=== PATIENT | female | born 1975 | race American Indian/Alaskan Native ===

== ENCOUNTER 2017-03-29 09:45 | Outpatient (CLI) | payer OTHER ==
--- NOTE | 2017-03-29 10:57 | Mammography Report ---
BILATERAL MAMMOGRAM: FINDINGS: There are scattered fibroglandular densities (approximately 25%-50% glandular). No mass, distortion, suspicious calcification, or skin change is seen. There is no significant change when compared to prior examination in October 2014. CAD was utilized. IMPRESSION: Negative mammogram. There is no mammographic evidence of malignancy. RECOMMENDATION: Follow-up per ACS guidelines. BI-RADS CATEGORY: 1 = Negative ACR BI-RADS MAMMOGRAPHIC CODES: 0 = Needs additional imaging evaluation; 1 = Negative; 2 = Benign; 3 = Probably benign; 4 = Suspicious; 5 = Malignant; 6 = Known biopsy-proven malignancy COMMENT: 1. Dense breast tissue, i.e., adenosis, fibrocystic changes, etc., may obscure an underlying neoplasm. 2. Approximately 10% of cancers are not detected with mammography. 3. A negative mammography report should not delay biopsy if a clinically suspicious mass is present. COMMENT: Patient follow-up letters are generated in [employer].
== END 2017-03-29 09:46 | disposition home or self-care (01) ==
LOC: SPVWC 09:45
PROVIDERS: ATTEND Obstetrics & Gynecology
DX: Z12.31 Encounter for screening mammogram for malignant neoplasm of breast (principal)
CPT/HCPCS: 77067; G0202

== ENCOUNTER 2019-02-13 08:08 | Outpatient (CLI) | payer BC ==
--- NOTE | 2019-02-13 09:34 | Ultrasound Report ---
ABDOMINAL ULTRASOUND HISTORY: Bloating, problems suggesting food and reflux. COMPARISON: None. TECHNIQUE: Multiple real-time ultrasonographic grayscale images were obtained of the abdomen. FINDINGS: Aorta: No significant abnormality. The aorta measures 2.2 cm maximum. IVC: No significant abnormality. Pancreas: The tail is partially obscured by poor acoustic windows. Visualized portions without signi ficant abnormality. Liver: Normal. The right lobe measures 13.8 cm. Gallbladder: No stones, wall thickening or pericholecystic fluid. Negative Mancini sign. Common bile duct: 3.7 mm. Right kidney: Anterior cortical scarring but otherwise normal. No hydronephrosis. Kidney measures 11 .3 x 4.4 x 5.4 cm. Spleen: Normal size and appearance measuring 11.2 x 5.0 x 4.8 cm in length. Left kidney: No significant abnormality. No hydronephrosis. Kidney measures cm. Additional findings: None. IMPRESSION: Negative abdomen. No cholelithiasis and no signs of acute cholecystitis. Signer Name: Moi Barrios MD Signed: 02/13/2019 9:30 AM Workstation Name: [id number]
== END 2019-02-13 08:09 | disposition home or self-care (01) ==
LOC: SPVWC 08:08
PROVIDERS: ATTEND Internal Medicine Gastroenterology
DX: R13.12 Dysphagia, oropharyngeal phase (principal); R10.13 Epigastric pain
CPT/HCPCS: 76700

== ENCOUNTER 2020-04-21 11:24 | Emergency (ER) | payer BC ==
[2020-04-21 11:38] VITALS: BP 145/80
--- NOTE | 2020-04-21 13:03 | Event Note ---
ED Screening Note ED Screening Note: Patient is a 44-year-old female presents emergency room complaints of urinary frequency that began 2 weeks ago. She has associated left lower back pain and left flank pain. She states that she saw her primary care doctor 2 days ago and had her urine tested which was negative for UTI. She states that they started her on Macrobid and sent a urine culture. She states that she is also had associated nausea and a couple episodes of vomiting. She is able to tolerate p.o. intake. She denies any dysuria, fever, diarrhea, abdominal pain. No past medical history. Allergy to penicillin. She states that she had a hysterectomy 4 to 5 years ago. She states that she is concerned she may have a nephrolith iasis. This initial assessment/diagnostic orders/clinical plan/treatment(s) is/are subject to change based on patients health status, clinical progression and re- assessment by fellow clinical providers in the ED. Further treatment and workup at subsequent clinical providers discretion. Patient/guardian urged not to elope from the ED as their condition may be serious if not clinically assessed and managed. Initial orders include: Labs, urine, CT
[2020-04-21 13:57] LABS: Basophils % (Auto) 0.3 % (0.0-1.8); Eosinophils # (Auto) 0.1 K/mm3 (0.0-0.4); Eosinophils % (Auto) 0.8 % (0.0-4.3); Hematocrit 41.2 % (30.3-42.9); Hemoglobin 13.5 gm/dl (10.1-14.3); Lymphocytes # (Auto) 1.7 K/mm3 (1.2-5.4); Mean Corpuscular HGB Conc 33 % (30-34); Mean Corpuscular Volume 87 fl (79-97); Monocytes # (Auto) 0.7 K/mm3 (0.0-0.8); Monocytes % (Auto) 8.3 % (0.0-7.3); Red Blood Count 4.74 M/mm3 (3.65-5.03); Red Cell Distribution Width 13.8 % (13.2-15.2)
[2020-04-21 14:04] LABS: Alanine Aminotransferase 9 units/L (7-56); Albumin 4.1 g/dL (3.9-5); BUN/Creatinine Ratio 15; Blood Urea Nitrogen 15 mg/dL (7-17); Calcium 9.9 mg/dL (8.4-10.2); Hemolysis Index 3
--- NOTE | 2020-04-21 14:32 | Cat Scan Report ---
CT ABDOMEN AND PELVIS WITHOUT CONTRAST INDICATION: Left flank pain. TECHNIQUE: Axial CT images were obtained through the abdomen and pelvis without IV contrast. All CT scans at is location are performed using CT dose reduction for ALARA by means of automated exposure control. COMPARISON: None available. FINDINGS: LOWER CHEST: 1.5 cm left lower lobe nodular parenchymal density and 6 mm right lower lobe pulmonary n odule image 30 LIVER: No significant abnormality. GALLBLADDER: No significant abnormality. BILE DUCTS: No significant abnormality. PANCREAS: No significant abnormality. SPLEEN: No significant abnormality. ADRENALS: No significant abnormality. RIGHT KIDNEY and URETER: No significant abnormality. LEFT KIDNEY and URETER: Obstructing 4 mm left UVJ stone image 157 with mild left hydronephrosis STOMACH and SMALL BOWEL: No significant abnormality. COLON: No significant abnormality. APPENDIX: No significant abnormality. PERITONEUM: No free fluid. No free air. No fluid collection. LYMPH NODES: No significant adenopathy. AORTA and ARTERIES: No significant abnormality. IVC and VEINS: No significant abnormality. 1.5 cm URINARY BLADDER: No significant abnormality. REPRODUCTIVE ORGANS: Hemorrhagic 3.5 cm left ovarian cyst image 139 ADDITIONAL FINDINGS: 2.3 cm left intramuscular psoas lipoma SKELETAL SYSTEM: No significant abnormality. IMPRESSION: 1. Obstructing 4 mm left UVJ stone with mild left hydronephrosis 2. Bilateral lower lobe nodularity likely infectious/inflammatory in etiology. Largest nodular densit y measures 1.5 cm. INCIDENTAL PULMONARY NODULE RECOMMENDATION RECOMMENDATION: Solid Nodule size >8 mm -- Multiple - Low Risk Patient: CT at 3-6 months, then consider CT at 18-24 months - High Risk Patient: CT at 3-6 months, then CT at 18-24 months Note These recommendations do not apply to lung cancer screening, patients with immunosuppression, o r patients with known primary cancer. Note Newly detected indeterminate nodule in persons 35 years of age or older. Persons under the age of 35 should not receive follow-up unless there is a known primary cancer. Note A Perifissural Nodule is a fissure-attached/subpleural, homogeneous, solid nodule that had smoo th margins and an oval, lentiform, or triangular shape. They represent about 20% of nodules detected in lung cancer screening, are invariably benign, and do not require follow-up. Nodules 10 mm or large r (or those with suspicious features) will continue to be managed based on the size criteria. Low Risk Patient -- minimal or absent history of smoking and of other known risk factors. High Risk Patient -- history of smoking or of other known risk factors. Nodule dimensions are average of long and short axes, rounded to the nearest millimeter. Based on 2017 Fleischner Society Guidelines found in Radiology 2017 284:228-243. https://doi.org/10.1148/radiol.6064695790 https://www.ncbi.nlm.nih.gov/pmc/articles/ROG4179452/ Signer Name: Too Benavides MD Signed: 04/21/2020 2:28 PM Workstation Name: [id number]
[2020-04-21 14:56] LABS: Platelet Count 196 K/mm3 (140-440)
[2020-04-21] MEDS ORDERED: SODIUM CHLORIDE 0.9% 1000 ML 1,000 ML IV ONE (16:26)
[2020-04-21] MEDS ORDERED: TAMSULOSIN 0.4 MG CAP PO ONE (16:26)
[2020-04-21] MEDS ORDERED: traMADol 50 MG TAB PO ONE (16:26)
[2020-04-21] MEDS ORDERED: MORPHINE 2 MG/1 ML INJ IV ONE (16:33)
[2020-04-21] MEDS ORDERED: ONDANSETRON 4 MG/2 ML INJ IV ONE (16:33)
--- NOTE | 2020-04-21 16:34 | Emergency Department Report ---
ED Female HPI - General Chief complaint: Urogenital-Female Stated complaint: FREQUENT URINATION/PRESSURE Time Seen by Provider: 04/21/20 13:01 Source: patient Mode of arrival: Ambulatory Limitations: No Limitations - History of Present Illness Initial comments: Patient is a 44-year-old female presents emergency room complaints of urinary frequency that began 2 weeks ago. She has associated left lower back pain and left flank pain. She states that she saw her primary care doctor 2 days ago and had her urine tested which was negative for UTI. She states that they started her on Macrobid and sent a urine culture. She states that she is also had associated nausea and a couple episodes of vomiting. She is able to tolerate p.o. intake. She denies any dysuria, fever, diarrhea, abdominal pain. No past medical history. Allergy to penicillin. She states that she had a hysterectomy 4 to 5 years ago. She states that she is concerned she may have a nephrolithiasis. Onset/Timin -: days(s) Severity scale (0 -10): 9 Quality: sharp, stabbing Consistency: intermittent Improves with: none Are you Now?: No Associated Symptoms: nausea/vomiting, hematuria, other (Frequent urination) - Related Data Home Medications Medication Instructions Recorded Confirmed Last Taken Iron [Iron 18 MG TAB] 2 tab PO QDAY 12/18/14 12/25/14 12/23/14 09:00 raNITIdine HCl [Zantac 150 MG TAB] 150 mg PO PRN PRN 12/18/14 12/25/14 12/23/14 09:00 Previous Rx's Medication Instructions Recorded Last Taken Type HYDROcodone/APAP 7.5-325 [Micanopy 1 each PO Q6HR PRN #12 tablet 04/21/20 Unknown Rx 7.5/325] Ketorolac [Toradol] 10 mg PO Q6H PRN #20 tablet 04/21/20 Unknown Rx Ondansetron [Zofran Odt] 4 mg PO Q8HR #12 tab.rapdis 04/21/20 Unknown Rx Tamsulosin [Flomax] 0.4 mg PO QDAY #5 cap 04/21/20 Unknown Rx Allergies Allergy/AdvReac Type Severity Reaction Status Date / Time Penicillins Allergy Hives Verified 12/25/14 13:03 ED Review of Systems ROS: Stated complaint: FREQUENT URINATION/PRESSURE Other details as noted in HPI Comment: All other systems reviewed and negative ED Past Medical Hx - Past Medical History Previous Medical History?: Yes Hx Hypertension: No Hx GERD: Yes (occas) Hx Headaches / Migraines: Yes (occas migraines) Hx Asthma: No - Surgical History Past Surgical History?: Yes Additional Surgical History: Hyst - Social History Smoking Status: Never Smoker Substance Use Type: None - Medications Home Medications: Home Medications Medication Instructions Recorded Confirmed Last Taken Type Iron [Iron 18 MG TAB] 2 tab PO QDAY 12/18/14 12/25/14 12/23/14 09:00 History raNITIdine HCl [Zantac 150 MG TAB] 150 mg PO PRN PRN 12/18/14 12/25/14 12/23/14 09:00 History HYDROcodone/APAP 7.5-325 [M[place]opy 1 each PO Q6HR PRN #12 tablet 04/21/20 Unknown Rx 7.5/325] Ketorolac [Toradol] 10 mg PO Q6H PRN #20 tablet 04/21/20 Unknown Rx Ondansetron [Zofran Odt] 4 mg PO Q8HR #12 tab.rapdis 04/21/20 Unknown Rx Tamsulosin [Flomax] 0.4 mg PO QDAY #5 cap 04/21/20 Unknown Rx ED Physical Exam - General Limitations: No Limitations General appearance: alert, in no apparent distress - Head Head exam: Present: atraumatic, normocephalic - Eye Eye exam: Present: normal appearance - ENT ENT exam: Present: normal exam, mucous membranes moist - Neck Neck exam: Present: full ROM - Respiratory Respiratory exam: Absent: accessory muscle use - Cardiovascular Cardiovascular Exam: Present: regular rate - GI/Abdominal GI/Abdominal exam: Present: soft. Absent: distended - Extremities Exam Extremities exam: Present: normal inspection, full ROM - Back Exam Back exam: Present: full ROM, CVA tenderness (L) - Neurological Exam Neurological exam: Present: normal gait - Psychiatric Psychiatric exam: Present: normal affect, normal mood - Skin Skin exam: Present: warm, dry, intact, normal color. Absent: rash ED Course Vital Signs 04/21/20 04/21/20 04/21/20 11:35 16:01 16:59 Temperature 97.6 F Pulse Rate 74 Respiratory 20 18 18 Rate Blood Pressure 145/80 O2 Sat by Pulse 96 Oximetry ED Medical Decision Making - Lab Data Result diagrams: 04/21/20 13:08 04/21/20 13:08 - Radiology Data Radiology results: report reviewed Patient: JOSEY RANDLE MR#: [id number] : 1975 Acct:[id number] Age/Sex: 44 / F ADM Date: 04/21/20 Loc: ED Attending Dr: Ordering Physician: ADOLFO SINCLAIR Date of Service: 04/21/20 Procedure(s): CT abdomen pelvis wo con Accession Number(s): [id number] cc: ADOLFO SINCLAIR CT ABDOMEN AND PELVIS WITHOUT CONTRAST INDICATION: Left flank pain. TECHNIQUE: Axial CT images were obtained through the abdomen and pelvis without IV contrast. All CT scans at this location are performed using CT dose reduction for ALARA by means of automated exposure contr ol. COMPARISON: None available. FINDINGS: LOWER CHEST: 1.5 cm left lower lobe nodular parenchymal density and 6 mm right lower lobe pulmonary nodule image 30 LIVER: No significant abnormality. GALLBLADDER: No significant abnormality. BILE DUCTS: No significant abnormality. PANCREAS: No significant abnormality. SPLEEN: No significant abnormality. ADRENALS: No significant abnormality. RIGHT KIDNEY and URETER: No significant abnormality. LEFT KIDNEY and URETER: Obstructing 4 mm left UVJ stone image 157 with mild left hydronephrosis STOMACH and SMALL BOWEL: No significant abnormality. COLON: No significant abnormality. APPENDIX: No significant abnormality. PERITONEUM: No free fluid. No free air. No fluid collection. LYMPH NODES: No significant adenopathy. AORTA and ARTERIES: No significant abnormality. IVC and VEINS: No significant abnormality. 1.5 cm URINARY BLADDER: No significant abnormality. REPRODUCTIVE ORGANS: Hemorrhagic 3.5 cm left ovarian cyst image 139 ADDITIONAL FINDINGS: 2.3 cm left intramuscular psoas lipoma SKELETAL SYSTEM: No significant abnormality. IMPRESSION: 1. Obstructing 4 mm left UVJ stone with mild left hydronephrosis 2. Bilateral lower lobe nodularity likely infectious/inflammatory in etiology. Largest nodular density measures 1.5 cm. INCIDENTAL PULMONARY NODULE RECOMMENDATION RECOMMENDATION: Solid Nodule size >8 mm -- Multiple - Low Risk Patient: CT at 3-6 months, then consider CT at 18-24 months - High Risk Patient: CT at 3-6 months, then CT at 18-24 months Note These recommendations do not apply to lung cancer screening, patients with immunosuppression, or patients with known primary cancer. Note Newly detected indeterminate nodule in persons 35 years of age or older. Persons under the age of 35 should not receive follow-up unless there is a known primary cancer. Note A Perifissural Nodule is a fissure-attached/subpleural, homogeneous, solid nodule that had smooth margins and an oval, lentiform, or triangular shape. They represent about 20% of nodules detected in lung cancer screening, are invariably benign, and do not require follow-up. Nodules 10 mm or larger (or those with suspicious features) will continue to be managed based on the size criteria. Low Risk Patient -- minimal or absent history of smoking and of other known risk factors. High Risk Patient -- history of smoking or of other known risk factors. Nodule dimensions are average of long and short axes, rounded to the nearest millimeter. Based on 2017 Fleischner Society Guidelines found in Radiology 2017 284:228-243. https://doi.org/10.1148/radiol.5631388663 https://www.ncbi.nlm.nih.gov/pmc/articles/DKT4880453/ Signer Name: Too Benavides MD Signed: 04/21/2020 2:28 PM Workstation Name: [id number] Transcribed By: TL Dictated By: Too Benavides MD Electronically Authenticated By: Too Benavides MD Signed Date/Time: 04/21/201427 DD/ 21 TD/TT: - Medical Decision Making Patient is a 44-year-old female presents emergency room complaints of urinary frequency that began 2 weeks ago. She has associated left lower back pain and left flank pain. She states that she saw her primary care doctor 2 days ago and had her urine tested which was negative for UTI. She states that they started her on Macrobid and sent a urine culture. She states that she is also had associated nausea and a couple episodes of vomiting. She is able to tolerate p.o. intake. She denies any dysuria, fever, diarrhea, abdominal pain. No past medical history. Allergy to penicillin. She states that she had a hysterectomy 4 to 5 years ago. She states that she is concerned she may have a nephrolithiasis. CBC CMP urinalysis CT abdomen. CT shows that is a 4 mm nonobstructing calculi of the left kidney at the UVJ. Initiated fluids, Toradol, Flomax, morphine and Zofran. Patient will be discharged home on Flomax Toradol Micanopy and a referral to urology. Patient is instructed not to drive or operate heavy machinery while taking Micanopy for pain. Critical care attestation.: If time is entered above; I have spent that time in minutes in the direct care of this critically ill patient, excluding procedure time. ED Disposition Clinical Impression: Calculus of left kidney, Hydronephrosis Disposition: - TO HOME OR SELFCARE Is pt being admited?: No Does the pt Need Aspirin: No Condition: Stable Instructions: Kidney Stones Additional Instructions: Please take medications as prescribed. Is very important for you to follow-up with urology. Do not operate heavy machinery while taking Micanopy. Encourage you to increase your water intake by 4 to 5 L daily. Prescriptions: Tamsulosin [Flomax] 0.4 mg PO QDAY #5 cap HYDROcodone/APAP 7.5-325 [Micanopy 7.5/325] 1 each PO Q6HR PRN #12 tablet PRN Reason: Pain Ketorolac [Toradol] 10 mg PO Q6H PRN #20 tablet PRN Reason: Pain Ondansetron [Zofran Odt] 4 mg PO Q8HR #12 tab.rapdis Referrals: STEPHEN ADAME MD [Primary Care Provider] - 3-5 Days DWAYNE MITCHELL MD [Staff Physician] - 3-5 Days [facility]ARC[facility] [Provider Group] - 3-5 Days Forms: Work/School Release Form(ED)
[2020-04-21 18:45] LABS: Mucus,Urine FEW /HPF
[2020-04-21 18:49] LABS: Bilirubin,Urine NEG (Negative); Blood,Urine MOD (Negative); Color,Urine Yellow (Yellow); Protein,Urine <15 mg/dL mg/dL (Negative); Urobilinogen,Urine < 2.0 mg/dL (<2.0)
== END 2020-04-21 18:58 | disposition home or self-care (01) ==
LOC: ED 11:24
DX: N13.30 Unspecified hydronephrosis (principal); N20.0 Calculus of kidney; R11.2 Nausea with vomiting, unspecified; I10 Essential (primary) hypertension; K21.9 Gastro-esophageal reflux disease without esophagitis; G43.909 Migraine, unspecified, not intractable, without status migrainosus; Z90.710 Acquired absence of both cervix and uterus; Z79.899 Other long term (current) drug therapy; Z88.0 Allergy status to penicillin
CPT/HCPCS: 36415; 74176; 80053; 81001; 85025; 87086; 96361; 96374; 96375; 99284; J2270; J2405; J7030

== ENCOUNTER 2021-03-18 09:14 | Outpatient (CLI) | payer BC ==
--- NOTE | 2021-03-19 10:39 | Mammography Report ---
DIGITAL SCREENING MAMMOGRAM WITH CAD, 03/18/2021 CLINICAL INFORMATION / INDICATION: Routine screening mammography. TECHNIQUE: Digital bilateral 2D mammography was obtained in the craniocaudal and mediolateral obliqu e projections. This examination was interpreted with the benefit of Computer-Aided Detection analysis . COMPARISON: 02/03/2019, 03/29/2017 FINDINGS: Breast Density: There are scattered areas of fibroglandular density. No dominant mass, suspicious calcifications, or architectural distortion in either breast. There has been no significant interval change. IMPRESSION: No mammographic evidence of malignancy. Follow up recommendation: Routine yearly BI-RADS Category 1: Negative. A "normal" or negative report should not discourage follow up or biopsy of a clinically significant f inding. A written summary of these findings will be mailed to the patient. The patient will be entered into a mammography reporting system which will generate a reminder letter for the patient's next appointmen t at the appropriate interval. The [employer] recommends yearly mammograms starting at age 40 and continuing as l nicol as a woman is in good health. Breast MRI is recommended for women with an approximate 20-25% or greater lifetime risk of breast cancer, including women with a strong family history of breast or ova mayra cancer or who have been treated for Hodgkin's disease. Signer Name: lOiver Ross MD Signed: 03/19/2021 10:35 AM Workstation Name: [id number]
== END 2021-03-18 09:15 | disposition home or self-care (01) ==
LOC: SPVWC 09:14
PROVIDERS: ATTEND Family Medicine
DX: Z12.31 Encounter for screening mammogram for malignant neoplasm of breast (principal)
CPT/HCPCS: 77067